=== PATIENT | female | born 1995 | race Caucasian/White ===

== ENCOUNTER 2021-09-25 10:51 | Emergency (ER) | payer BC, MEDICAID ==
[2021-09-25] MEDS ORDERED: Sodium Chloride 0.9% 1,000 ML IV ONE (11:17)
[2021-09-25] MEDS ORDERED: Vitamin B6-pyridOXINE 50 MG Tab PO SCH (11:30)
[2021-09-25 12:35] LABS: BLOOD UREA NITROGEN,BUN 7 mg/dL (7.0-18.0); CARBON DIOXIDE,CO2 21.5 mmol/L (21.0-32.0); CHLORIDE,CL 101 mmol/L (98-107); GLUCOSE RANDOM 82 mg/dL (74-106); POTASSIUM,K 4.1 mmol/L (3.5-5.1); SODIUM,NA 136 mmol/L (136-145)
== END 2021-09-25 13:44 | disposition home or self-care (01) ==
LOC: MW.ED 10:51
DX: O21.0 Mild hyperemesis gravidarum (principal); Z88.1 Allergy status to other antibiotic agents; Z3A.11 11 weeks gestation of pregnancy
CPT/HCPCS: 36415; 80053; 81001; 84702; 85025; 87086; 99284; A9270; J7030; 99283

== ENCOUNTER 2021-09-29 11:53 | Emergency (ER) | payer BC, MEDICAID ==
[2021-09-29] MEDS ORDERED: Sodium Chloride 0.9% 10 ML Syringe FLUSH PRN (12:05)
[2021-09-29] MEDS ORDERED: Ondansetron 4 MG/2 ML SDV IVPUSH ONE (12:05)
[2021-09-29] MEDS ORDERED: Sodium Chloride 0.9% 1,000 ML IV ONE ×2 (12:05→13:27)
[2021-09-29] MEDS ORDERED: Sodium Chloride 0.9% 2.5 ML Syringe FLUSH PRN (12:05)
[2021-09-29] MEDS ORDERED: Thiamine 100 MG in Sodium Chloride 0.9% 100 ML IV ONE (12:06)
[2021-09-29 13:01] LABS: BLOOD UREA NITROGEN,BUN 11 mg/dL (7.0-18.0); CHLORIDE,CL 101 mmol/L (98-107); GLUCOSE RANDOM 73 mg/dL (74-106); LIPASE 298 U/L (73-393); POTASSIUM,K 4.3 mmol/L (3.5-5.1); SODIUM,NA 135 mmol/L (136-145)
== END 2021-09-29 15:05 | disposition home or self-care (01) ==
LOC: MW.ED 11:53
DX: O21.0 Mild hyperemesis gravidarum (principal); Z88.0 Allergy status to penicillin
CPT/HCPCS: 36415; 80053; 81001; 83690; 83735; 85025; 96365; 96375; 99284; J2405; J3411; J7030; 99283

== ENCOUNTER 2022-04-09 14:13 | Inpatient (IN) | payer MEDICAID ==
[2022-04-09] MEDS ORDERED: Oxytocin/0.9 % Sodium Chloride 30 UNIT/500 ML BAG ONE (15:28)
[2022-04-09] MEDS ORDERED: Lidocaine 1% 50 ML MDV ONE (15:31)
[2022-04-09] MEDS ORDERED: Sodium Chloride 0.9% 10 ML Syringe FLUSH PRN (15:49)
[2022-04-09] MEDS ORDERED: Tranexamic Acid 1,000 MG in Sodium Chloride 0.9% 100 ML IV PRN (15:49)
[2022-04-09] MEDS ORDERED: Butorphanol 1 MG/ML SDV IVPUSH PRN (15:49)
[2022-04-09] MEDS ORDERED: Sodium Chloride 0.9% 2.5 ML Syringe FLUSH PRN (15:49)
[2022-04-09] MEDS ORDERED: Misoprostol 200 MCG Tab PO PRN (15:49)
[2022-04-09] MEDS ORDERED: Methylergonovine 0.2 MG/1 ML Amp IM PRN (15:49)
[2022-04-09] MEDS ORDERED: Water For Irrigation,Sterile 1,000 ML Container IRR PRN (15:49)
[2022-04-09] MEDS ORDERED: Lidocaine 1% 50 ML MDV INJECT PRN (15:49)
[2022-04-09] MEDS ORDERED: Carboprost Tromethamine 250 MCG/1 ML Amp IM PRN (15:49)
[2022-04-09] MEDS ORDERED: Sodium Chloride 0.9% 20 ML SDV IV PRN (15:49)
[2022-04-09] MEDS ORDERED: Lanolin 100% Cream 7 GM Tube TOP PRN (15:51)
[2022-04-09] MEDS ORDERED: oxyCODONE 5 MG Tab PO PRN (15:51)
[2022-04-09] MEDS ORDERED: Acetaminophen 500 MG Tab PO PRN ×2 (15:51)
[2022-04-09] MEDS ORDERED: Ibuprofen 400 MG Tab PO PRN (15:51)
[2022-04-09] MEDS ORDERED: Benzocaine/Menthol 20%-0.5% Spray 78 GM Cannister TOP PRN (15:51)
[2022-04-09] MEDS ORDERED: Witch Hazel Medicated Pads 40/Jar TOP PRN (15:51)
[2022-04-09] MEDS ORDERED: Docusate Sodium 100 MG Cap PO PRN (15:51)
[2022-04-09] MEDS ORDERED: Bisacodyl 10 MG Supp RECTAL PRN (15:51)
[2022-04-09] MEDS ORDERED: Lactated Ringers 1,000 ML IV SCH (16:00)
[2022-04-09] MEDS ORDERED: Oxytocin/0.9 % Sodium Chloride 30 UNIT/500 ML BAG IV SCH (16:00)
[2022-04-09 16:45] LABS: CARBON DIOXIDE,CO2 17.1 mmol/L (21.0-32.0); POTASSIUM,K 4.5 mmol/L (3.5-5.1)
[2022-04-09] MEDS: Ibuprofen 800 MG Tab PO PRN (17:46)
[2022-04-10] MEDS: Ibuprofen 800 MG Tab PO PRN ×3 (00:50→13:07)
== END 2022-04-10 19:30 | disposition home or self-care (01) | DRG 805 ==
LOC: MW.OB 14:13 → OBSVTOIN 15:30 → MW.OB 20:52
PROVIDERS: ADMIT Obstetrics & Gynecology; ATTEND Obstetrics & Gynecology
PROC: 10E0XZZ Delivery of Products of Conception, External Approach (ICD-10-PCS; principal; 2022-04-09)
PROC: 0HQ9XZZ Repair Perineum Skin, External Approach (ICD-10-PCS; 2022-04-09)
DX: O99.284 Endocrine, nutritional and metabolic diseases complicating childbirth (principal); U07.1 COVID-19; Z37.0 Single live birth; O98.52 Other viral diseases complicating childbirth; E03.9 Hypothyroidism, unspecified; Z3A.39 39 weeks gestation of pregnancy; O70.0 First degree perineal laceration during delivery
CPT/HCPCS: 36415; 59025; 59409; 80053; 82570; 82803; 84156; 84550; 85014; 85018; 85027; 86592; 86850; 86900; 86901; A9270-GY; J2001; J2590; U0002

== ENCOUNTER 2022-06-02 14:18 | Emergency (ER) | payer MEDICAID | END 2022-06-02 16:59 | disposition home or self-care (01) | LOC: MW.ED 14:18 | DX: S22.41XA Multiple fractures of ribs, right side, initial encounter for closed fracture (principal); E03.9 Hypothyroidism, unspecified; Z88.0 Allergy status to penicillin; Z79.899 Other long term (current) drug therapy; W50.0XXA Accidental hit or strike by another person, initial encounter; Y93.72 Activity, wrestling | CPT/HCPCS: 71250; 71250-26; 81025; 99284 ==

== ENCOUNTER 2022-09-20 10:29 | Emergency (ER) | payer MEDICAID | END 2022-09-20 11:10 | disposition home or self-care (01) | LOC: MW.ED 10:29 | DX: A60.00 Herpesviral infection of urogenital system, unspecified (principal); E03.9 Hypothyroidism, unspecified; Z88.0 Allergy status to penicillin; Z79.899 Other long term (current) drug therapy | CPT/HCPCS: 99282; 99283 ==